=== PATIENT | male | born 1985 | race African-American/Black ===

== ENCOUNTER → 2018-08-14 | Outpatient (CLI) | payer OTHER ==
--- NOTE | 2018-08-14 17:24 | KCIC ---
MR of the left knee Indication: Left knee pain after a fall one week ago, medially. Catching. Comparison: None are available. Technique: The standard multiplanar sequences are obtained. FINDINGS: Artifact: No significant image degradation. Medial meniscus:Intact. Lateral meniscus: Intact. Anterior cruciate ligament: Intact Posterior cruciate ligament: Intact Medial collateral ligament: Intact. Lateral structures: * Iliotibial band: Intact. * Lateral collateral ligament: Intact. * Biceps femoris tendon: Intact * Popliteus tendon attachment: Intact Extensive mechanism: * Patellar tendon: Intact * Quadriceps tendon: Intact * Retinacular structures: Intact Fluid: Small joint effusion. No significant Stover's cyst. Intra-articular bodies: None visualized Joint compartments * patellofemoral joint:Intact * medial compartment:Intact * lateral compartment:Intact Bones: No significant lesion or acute fracture. Soft tissue: Unremarkable Impression: No evidence of acute abnormality or internal derangement. Electronically signed by: Hayes Sharma MD (08/14/2018 5:20 PM) [id number]
== END | disposition home or self-care (01) ==
LOC: KCIC MRI 15:12
DX: M25.462 Effusion, left knee (principal)
CPT/HCPCS: 73721